=== PATIENT | female | born 1985 | race Caucasian/White ===

== ENCOUNTER 2019-12-24 08:07 | Emergency (ER) | payer OTHER ==
[~2019-12-24] VITALS: Ht 162.6 cm; Wt 81.6 kg
[2019-12-24] MEDS ORDERED: CLONAZEPAM0.5 M1 PO (10:33)
[2019-12-24] MEDS ORDERED: ALTACE2.5 MG PO (10:34)
== END 2019-12-24 09:22 | disposition home or self-care (01) ==
LOC: ER 08:07
DX: S29.019A Strain of muscle and tendon of unspecified wall of thorax, initial encounter (principal); X50.9XXA Other and unspecified overexertion or strenuous movements or postures, initial encounter; Y93.89 Activity, other specified; Y92.89 Other specified places as the place of occurrence of the external cause; Y99.8 Other external cause status

== ENCOUNTER 2020-02-16 06:57 | Emergency (ER) | payer OTHER ==
[~2020-02-16] VITALS: Ht 162.6 cm; Wt 81.6 kg
[~2020-02-16 06:57] MED LIST: ALTACE2.5 MG PO; CLONAZEPAM0.5 M1 PO
[2020-02-16] MEDS ORDERED: ZITHROMAX500 MG PO (11:08)
[2020-02-16] MEDS ORDERED: KETO10TA2 PO (11:08)
== END 2020-02-16 11:23 | disposition home or self-care (01) ==
LOC: ER 06:57
DX: H92.02 Otalgia, left ear (principal); Z20.828 Contact with and (suspected) exposure to other viral communicable diseases

== ENCOUNTER 2021-06-26 12:15 | Inpatient (IN) | payer OTHER ==
[~2021-06-26] VITALS: Ht 162.6 cm; Wt 90.7 kg
[~2021-06-26 12:15] MED LIST changes: +KETO10TA2 PO; +ZITHROMAX500 MG PO
[2021-07-13] MEDS ORDERED: ZYRTEC10 MG PO (01:11)
[2021-07-13] MEDS ORDERED: PRENA1 TRUE CO1 EACH PO (01:12)
[2021-07-15] MEDS ORDERED: LABETALOL HCL100 MG PO ×2 (10:01)
== END 2021-07-15 13:02 | disposition home or self-care (01) | DRG 807 ==
LOC: OB/GYN 07-09 12:15 → LDR 07-12 23:34 → SURG-SUITE 07-13 17:40
PROVIDERS: ADMIT Obstetrics & Gynecology Maternal & Fetal Medicine; ATTEND Obstetrics & Gynecology Maternal & Fetal Medicine
PROC: 10E0XZZ Delivery of Products of Conception, External Approach (ICD-10-PCS; principal; 2021-07-12)
PROC: 0KQM0ZZ Repair Perineum Muscle, Open Approach (ICD-10-PCS; 2021-07-12)
PROC: 0W8NXZZ Division of Female Perineum, External Approach (ICD-10-PCS; 2021-07-12)
PROC: 10907ZC Drainage of Amniotic Fluid, Therapeutic from Products of Conception, Via Natural or Artificial Opening (ICD-10-PCS; 2021-07-12)
PROC: 4A1HXFZ Monitoring of Products of Conception, Cardiac Rhythm, External Approach (ICD-10-PCS; 2021-07-12)
DX: O70.1 Second degree perineal laceration during delivery (principal); O99.824 Streptococcus B carrier state complicating childbirth; Z37.0 Single live birth; Z3A.40 40 weeks gestation of pregnancy

== ENCOUNTER 2021-07-05 11:30 | Outpatient (CLI) | payer OTHER ==
[2021-07-15] MEDS ORDERED: LABETALOL HCL100 MG PO (10:01)
== END 2021-07-05 12:00 | disposition home or self-care (01) ==
LOC: NST 11:30
PROVIDERS: ATTEND Obstetrics & Gynecology Maternal & Fetal Medicine
DX: Z34.83 Encounter for supervision of other normal pregnancy, third trimester (principal)

== ENCOUNTER 2021-07-11 11:08 | Outpatient (CLI) | payer OTHER | END 2021-07-11 11:31 | disposition home or self-care (01) | LOC: NST 11:08 | PROVIDERS: ATTEND Obstetrics & Gynecology Maternal & Fetal Medicine | DX: O48.0 Post-term pregnancy (principal) ==

== ENCOUNTER 2021-12-19 05:57 | Day surgery (SDC) | payer OTHER ==
[~2021-12-19 05:57] MED LIST changes: +LABETALOL HCL100 MG PO; +PRENA1 TRUE CO1 EACH PO; +ZYRTEC10 MG PO
== END 2021-12-19 14:15 | disposition home or self-care (01) ==
LOC: CIR.AMB 05:57
PROVIDERS: ATTEND Obstetrics & Gynecology
DX: Z64.1 Problems related to multiparity (principal); J45.909 Unspecified asthma, uncomplicated; Z86.16 Personal history of COVID-19; Z20.822 Contact with and (suspected) exposure to COVID-19